=== PATIENT | male | born 1960 | race Caucasian/White ===

== ENCOUNTER 2019-10-04 04:15 | Emergency (ER) | payer MEDICARE ==
[~2019-10-04] VITALS: Ht 175.3 cm; Wt 81.8 kg
[2019-10-04 04:27] VITALS: Ht 175.3 cm; Wt 81.8 kg
[2019-10-04] MEDS ORDERED: PERCOCET 7.5/321 TAB PO (04:28)
[2019-10-04] MEDS ORDERED: CYCLOBENZAPRINE10 MG PO (04:28)
[2019-10-04] MEDS ORDERED: PEPCID AC20 MG PO (04:29)
[2019-10-04 04:53] LABS: BASOPHILS 0.2 % (0-2); EOSINOPHILS 0.4 % (0-7); HEMATOCRIT 40.9 % (42.0-54.0); HEMOGLOBIN 13.8 g/dL (13.5-17.5); IMMATURE GRANULOCYTES 0.3 % (0-5); LYMPHOCYTES 17.3 % (15-50); MCH 29.2 pg (26.0-34.0); MCHC 33.7 g/dL (31.0-37.0); MCV 86.5 fL (80.0-100.0); MEAN PLATELET VOLUME 9.7 fL (7.4-10.4); MONOCYTES 7.5 % (2-11); NEUTROPHILS 74.3 % (40-80); PLATELET COUNT 243 10x3/uL (130-400); RBC 4.73 10x6/uL (4.20-6.10); RDW 13.4 % (11.5-14.5); WBC 11.6 10x3/uL (4.8-10.8)
[2019-10-04 05:00] LABS: CALC OSMOLALITY 269 mosm/kg (275-300); CARBON DIOXIDE 28.9 mmol/L (21.0-32.0); CHLORIDE - SERUM 100 mmol/L (98-107); CREATININE - SERUM 0.9 mg/dL (0.6-1.3); GLUCOSE 132 mg/dL (74-106); POTASSIUM - SERUM 3.8 mmol/L (3.5-5.1); SODIUM 135 mmol/L (136-145); UREA NITROGEN 8 mg/dL (7-18); eGFR NON AFRICAN AMERICAN > 90 mL/min (90-120)
[2019-10-04 05:09] LABS: ALBUMIN 3.8 g/dL (3.4-5.0); ALKALINE PHOSPHATASE 76 U/L (46-116); ALT (SGPT) 20 U/L (10-68); AMYLASE - SERUM 77 U/L (25-115); BILIRUBIN - TOTAL 0.44 mg/dL (0.2-1.3); LIPASE 91 U/L (73-393); PROTEIN - SERUM 8.6 g/dL (6.4-8.2); TROPONIN-I < 0.017 ng/mL (0.000-0.060)
[2019-10-04] MEDS ORDERED: REGLAN10 MG PO (05:20)
[2019-10-04] MEDS ORDERED: ZOFRAN ODT4 MG/UDTAB PO (05:20)
[2019-10-04 05:55] VITALS: BP 131/69
== END 2019-10-04 05:55 | disposition home or self-care (01) ==
LOC: D.ER 04:15
PROVIDERS: Emergency Medicine
DX: R10.13 Epigastric pain (principal); R11.0 Nausea